=== PATIENT | female | born 1965 | race Caucasian/White ===

== ENCOUNTER 2018-11-10 17:14 | Emergency (ER) | payer OTHER ==
[2018-11-10] MEDS ORDERED: Acetaminophen TAB* 325 MG PO ONE (17:42)
[2018-11-10] MEDS ORDERED: Ondansetron ODT TAB* 4 MG PO ONE (17:42)
[2018-11-10] MEDS ORDERED: Cyclobenzaprine TAB* 10 MG PO ONE (17:43)
--- NOTE | 2018-11-10 17:43 | ED ---
Adult Trauma - HPI Summary HPI Summary: This patient is a 53 year old F brought to [facility] by EMS accompanied by daughter and with a chief complaint of trauma due to trip and fall at 1620 today , 11/10/18. Patient reports she had a mechanical fall and hit her right side and back of head, right elbow, and back. Denies LOC. Now reporting an aching headache, occipital, 6/10, a/w nausea. She also reports R shoulder pain, R sided neck pain , back pain. Patient reports an abrasion to her arm but denies pain. Patient is not on blood thinners but did take alleve this am for muscle aches from hiking. - History of Current Complaint Chief Complaint: EDFall Stated Complaint: "FALL PER EMS" Time Seen by Provider: 11/10/18 17:24 Hx Obtained From: Patient Mechanism of Injury: Fall Loss of Consciousness: no loss of consciousness Onset/Duration: Started Hours Ago, Still Present Onset Severity: Moderate Pain Intensity: 6 Pain Scale Used: 0-10 Numeric Location: Head, Neck, Back, Extremities Aggravating Factor(s): Nothing Alleviating Factor(s): Nothing Associated Signs & Symptoms: Positive: Nausea/Vomiting - nausea no vomitting, Other: - abrasian - Allergy/Home Medications Allergies/Adverse Reactions: Allergies Allergy/AdvReac Type Severity Reaction Status Date / Time No Known Allergies Allergy Verified 11/10/18 17:23 Home Medications: Home Medications Olmesartan Medoxomil [Benicar] 20 mg PO DAILY 11/10/18 [History Confirmed ] PMH/Surg Hx/FS Hx/Imm Hx Cardiovascular History: Reports: Hx Hypertension GI History: Reports: Hx Gastroesophageal Reflux Disease - Surgical History Surgery Procedure, Year, and Place: Infectious Disease History: No Infectious Disease History: Denies: Traveled Outside the [place] in Last 30 Days - Family History Known Family History: Positive: Hypertension - Social History Alcohol Use: Occasionally Hx Substance Use: No Substance Use Type: Reports: None Hx Tobacco Use: No Smoking Status (MU): Never Smoked Tobacco Review of Systems Positive: Nausea Positive: Other - body aches/tenderness All Other Systems Reviewed And Are Negative: Yes Physical Exam - Summary Physical Exam Summary: Constitutional: Well-developed, Well-nourished, Alert, Cooperative Skin: Warm, Dry HENT: Normocephalic, atraumatic. Midface stable, Dentition intact Eyes: EOM normal, PERRL Neck: Trachea is midline. No stridor; No JVD; No step off; No posterior cervical spine tenderness Cardio: Rhythm regular, rate normal Heart sounds normal; Intact distal pulses; The pedal pulses are 2+ and symmetric. Radial pulses are 2+ and symmetric. Pulmonary/Chest wall: Effort normal; Breath sounds normal; Equal chest rise; No flail segment; No rib tenderness; No sternal tenderness Abd: Soft, Appearance normal. No distension; No tenderness Musculoskeletal: Right paraspinal cervical neck tenderness, paraspinal thoracic right sided tenderness, right shoulder tenderness w full ROM, right hip and buttock tenderness, Full ROM and no tenderness at ankles, elbows and knees; No joint swelling; No vertebral body tenderness; No step off or deformity of the spine; Pelvis is stable to lateral compression and rock Neuro: Alert, Oriented x3, GCS 15. Strength 5/5 all extremities. Psych: Mood and affect Normal Triage Information Reviewed: Yes Vital Signs On Initial Exam: Initial Vitals Temp Pulse Resp BP Pulse Ox 97.8 F 67 16 124/66 97 11/10/18 17:18 11/10/18 17:18 11/10/18 17:18 11/10/18 17:18 11/10/18 17:18 Vital Signs Reviewed: Yes Diagnostics - Vital Signs Vital Signs Temp Pulse Resp BP Pulse Ox 11/10/18 17:18 97.8 F 67 16 124/66 97 - Laboratory Lab Statement: Any lab studies that have been ordered have been reviewed, and results considered in the medical decision making process. - Radiology Shoulder X-Ray Radiology Interpretation Completed By: ED Physician Summary of Radiographic Findings: Per ED physician,. No acute abnormality. Pending offical report. Hip/Pelvis X-Ray Radiology Interpretation Completed By: ED Physician Summary of Radiographic Findings: Per ED physician,. No acute abnormality. Pending offical report. Chest X-Ray Radiology Interpretation Completed By: ED Physician Summary of Radiographic Findings: Per ED physician,. No acute abnormality. Pending offical report. Re-Evaluation - Re-Evaluation First Eval Re-Evaluation Time: 18:22 Comment: Patient states she feels better, NAD. Second Eval Re-Evaluation Time: 19:45 Comment: Pt ambulated. States she feels better w pain meds. XR wet read negative. D/w patient return precautions for closed head injury as well as to return for worsening pain of arm/back or hip. Adult Trauma Course/Dx - Course Course Of Treatment: 53-year-old female presents after mechanical fall. Primary survey intact, chest x-ray negative. Secondary survey with right paraspinal cervical tenderness, right shoulder tenderness, right thoracic tenderness, right hip and buttock tenderness. No midline CTL tenderness. Check plain films of the shoulder, hip and pelvis, as well as chest x-ray and give pain medications and reassess. [place] Head CT Rule. High Risk: 1. GCS < 15 at two hours after injury? no. 2. Suspected open or depressed skull fracture? no. 3. Basilar skull fracture (hemotympanum, "raccoon" eyes, cerebrospinal fluid otorrhea/rhinorrhea, Nur's sign)? no. 4. Vomiting, two or more episodes? no. 5. Age > 65? no. 6. Retrograde amnesia, 30 mins? no. 7. "Dangerous" Mechanism (PEDSvsAuto, Ejection, Fall >3ft, Fall > 5 stairs) no. . Citation: Lancet. 2000July 01;357(0629):1397-6. The [place] CT Head Rule for patients with minor head injury. [place] C-Spine Rule. 1. GCS 15? Yes. 2. High-risk Factors? No (Age > 65?, extremity paresthesias, fall from >3ft or 5 stairs, axial load injury, high speed MVC/Rollover/Ejection, bicycle or HALF-WAY). 3. Low-Risk Factors? Yes (Simple rear-end collision, sitting position in ED, ambulation after the accident, delayed onset of neck pain, absence of midline tenderness). 4. Able to rotate neck 45 degrees left and right? Yes. In the absence of high-risk factors, patients with the presence of at least one low- risk factor, and the ability to rotate the head 45 in each direction, do not require radiologic evaluation of the C-spine. Citation: [place] CT Head and C- Spine (CCC) Study Group. [place] C-Spine Rule study for alert and stable trauma patients: I. Background and rationale. CJEM. 2002 Apr;4(2):84-90. PubMed PMID: [id number]. - Diagnoses Provider Diagnoses: Fall, Cervical strain, Hip pain, Headache Discharge ED - Sign-Out/Discharge Documenting (check all that apply): Patient Departure - discharge Patient Received Moderate/Deep Sedation with Procedure: No - Discharge Plan Condition: Stable Disposition: HOME Patient Education Materials: Cervical Strain (ED), Concussion (ED), Fall Prevention (ED), Hip Pain (ED) Referrals: [facility] [Outside] - 2 Days Additional Instructions: You were seen in the emergency department for a fall. Your x-rays did not show any acute abnormalities on my read. You can take Tylenol 500 mg every 8 hours as needed for pain, as well as Motrin 600 mg every 8 hours for pain. If any studies were not completed at the time of discharge you will be called with the relevant results. Please follow up with your primary care doctor in next 2-3 days and return to emergency department for worsening , vomiting, severe headaches, weakness or numbness, worsening hip or shoulder pain, difficulty in breathing or concerning symptoms. It was a pleasure taking care of you today. - Billing Disposition and Condition Condition: STABLE Disposition: Home - Attestation Statements Document Initiated by Colleenibe: Yes Documenting Scribe: Linda Fuller Provider For Whom Prashanth is Documenting (Include Credential): Dr. Maria Del Rosario Rocha MD Scribe Attestation: Linda Barnes scribed for Dr. Maria Del Rosario Rocha MD on 11/10/18 at 1849. Scribe Documentation Reviewed: Yes Provider Attestation: The documentation as recorded by the Linda salgado accurately reflects the service I personally performed and the decisions made by me, Dr. Maria Del Rosario Rocha MD Status of Scribe Document: Viewed
[2018-11-10 18:57] VITALS: BP 122/68
== END 2018-11-10 18:55 | disposition home or self-care (01) ==
LOC: ED 17:14
DX: S16.1XXA Strain of muscle, fascia and tendon at neck level, initial encounter (principal); M25.551 Pain in right hip; R51 Headache; W01.0XXA Fall on same level from slipping, tripping and stumbling without subsequent striking against object, initial encounter; Y92.9 Unspecified place or not applicable; I10 Essential (primary) hypertension; K21.9 Gastro-esophageal reflux disease without esophagitis; Z79.899 Other long term (current) drug therapy
CPT/HCPCS: 71046; 99284; A9270-GY